=== PATIENT | female | born 1950 | race Caucasian/White ===

== ENCOUNTER 2021-06-13 10:32 | Emergency (ER) | payer OTHER ==
[~2021-06-13] VITALS: Ht 160 cm; Wt 72.6 kg
[2021-06-13 11:09] VITALS: BP 147/85
[2021-06-13] MEDS ORDERED: ONDANSETRON ODT 4 MG TAB PO ONE (11:30)
[2021-06-13] MEDS ORDERED: HYDROcodone-ACET 5/325MG TAB PO ONE (11:30)
== END 2021-06-13 12:48 | disposition home or self-care (01) ==
LOC: ER 10:32
DX: S42.202A Unspecified fracture of upper end of left humerus, initial encounter for closed fracture (principal); I10 Essential (primary) hypertension; E78.5 Hyperlipidemia, unspecified; W18.40XA Slipping, tripping and stumbling without falling, unspecified, initial encounter; Y93.89 Activity, other specified; Y92.89 Other specified places as the place of occurrence of the external cause; Y99.8 Other external cause status
CPT/HCPCS: 73030; 99282; Q0162

== ENCOUNTER 2022-06-29 09:52 | Emergency (ER) | payer OTHER ==
[~2022-06-29] VITALS: Ht 160 cm; Wt 76.0 kg
[2022-06-29 10:25] VITALS: BP 134/75
[2022-06-29] MEDS ORDERED: KETOROLAC TROMETH 30 MG/ML 1ML VIAL IM ONE (11:30)
[2022-06-29] MEDS ORDERED: MELO7.5T9 PO (11:34)
[2022-06-29] MEDS ORDERED: METH500T22 PO (11:34)
== END 2022-06-29 11:55 | disposition home or self-care (01) ==
LOC: ER 09:52
DX: S39.012A Strain of muscle, fascia and tendon of lower back, initial encounter (principal); M47.816 Spondylosis without myelopathy or radiculopathy, lumbar region; E78.5 Hyperlipidemia, unspecified; I10 Essential (primary) hypertension; X50.0XXA Overexertion from strenuous movement or load, initial encounter; Y93.89 Activity, other specified; Y92.89 Other specified places as the place of occurrence of the external cause; Y99.8 Other external cause status
CPT/HCPCS: 72100; 96372; 99283; J1885

== ENCOUNTER 2024-09-20 14:44 | Emergency (ER) | payer OTHER ==
[~2024-09-20] VITALS: Ht 160 cm; Wt 72.0 kg
[~2024-09-20 14:44] MED LIST: MELO7.5T9 PO; METH-1181 PO
[2024-09-20] MEDS ORDERED: GABA300T4 PO (17:14)
--- NOTE | 2024-09-20 17:17 | ED.PDOC ---
Asht[place]. trauma (HPI) HPI Comments 74 y.o female presents to the ED via EMS for a chief complaint of left posterior shoulder and upper back pain s/p mechanical fall 2 weeks ago. Patient reports landing on left side and since pain has been constant that worsens on palpation and movement. Patient was seen at two different urgent cares for pain, had X ray s done which showed now fractures but is here for reevaluation due to the persistent pain. Patient denied any head injuries or LOC when she fell. Chief Complaint: Back Pain Time Seen by MD: 17:08 Primary Care Provider: AUDREY Reviewed notes: Nurses Notes, [employer] Notes, Medications, Allergies Allergies: Coded Allergies: NO KNOWN ALLERGIES (Unverified , 06/13/21) Home Meds Active Scripts Gabapentin (Once-Daily) (Gabapentin) 300 Mg Tab, 300 MG PO Q6HPRN PRN for 10 Days, #40 TAB Prov:LEEROY LIMON MD 09/20/24 Methocarbamol (Methocarbamol) 500 Mg Tab, 500 MG PO QHSP PRN, #20 TAB Prov:CLARIBEL ABERNATHY 06/29/22 Meloxicam (Mobic) 7.5 Mg Tab, 7.5 MG PO BID, #30 TAB Prov:CLARIBEL ABERNATHY 06/29/22 Information Source: Patient Mode of Arrival: EMS Severity: Moderate Timing: Weeks (2) Duration: Since onset Location: Back, (L) Shoulder Location of laceration: None Mechanism: Fall Associated signs and symtoms: Other Past Medical History PAST MEDICAL HISTORY: Arthritis, Depression, High Lipids, HTN Surgical History: Denies all surgeries OCCUPATIONAL THERAPIST'S ASSISTANT History: Denies all OCCUPATIONAL THERAPIST'S ASSISTANT Hx Family History Family History: Reviewed,noncontributory to illness Social History Smoker: Non-Smoker Alcohol: Denies ETOH Use Drugs: Denies Drug Use Lives In: Home Constitutional: denies: chills, diaphoresis, fatigue, fever, malaise, sweats, weakness, others EENTM: denies: blurred vision, double vision, ear bleeding, ear discharge, ear drainage, ear pain, ear ringing, eye pain, eye redness, hearing loss, mouth pain, mouth swelling, nasal discharge, nose bleeding, nose congestion, nose pain, photophobia, tearing, throat pain, throat swelling, voice changes, others Respiratory: denies: cough, hemoptysis, orthopnea, SOB at rest, shortness of breath, SOB with excertion, stridor, wheezing, others Cardiovascular: denies: chest pain, dizzy spells, diaphoresis, Dyspnea on exertion, edema, irregular heart beat, left arm pain, lightheadedness, palpitations, PND, syncope, others Gastrointestinal: denies: abdomen distended, abdominal pain, blood streaked bowels, constipated, diarrhea, dysphagia, difficulty swallowing, hematemesis, melena, nausea, poor appetite, poor fluid intake, rectal bleeding, rectal pain, vomiting, others Genitourinary: denies: abnormal vagina bleeding, burning, dyspareunia, dysuria, flank pain, frequency, hematuria, incontinence, pain, , vagina discharge, urgency, others Neurological: denies: dizziness, fainting, headache, left sided numbness, left sided weakness, numbness, paresthesia, pre-existing deficit, right sided numbness, right sided weakness, seizure, speech problems, tingling, tremors, weakness, others Musculoskeletal: reports: back pain, others (left shoulder pain ); denies: gout, joint pain, joint swelling, muscle pain, muscle stiffness, neck pain Integumetry: denies: bruises, change in color, change in hair/nails, dryness, laceration, lesions, lumps, rash, wounds, others Allergic/Immunocompromised: denies: Difficulty Healing, Frequent Infections, Hives, Itching, others Hematologic/Lymphatic: denies: anemia, blood clots, easy bleeding, easy bruising, swollen glands, others Endocrine: denies: excessive hunger, excessive sweating, excessive thirst, excessive urination, flushing, intolerance to cold, intolerance to heat, unexplained weight gain, unexplained weight loss, others Psychiatric: denies: anxiety, bipolar disorder, depression, hopeless, panic disorder, schizophrenia, sleepless, suicidal, others All Other Systems: Reviewed and Negative Physical Exam General Appearance: Mild Distress HEENT: Normal ENT Inspection, Pharynx Normal, TMs Normal Neck: Full Range of Motion, Non-Tender, Normal, Normal Inspection Respiratory: Chest Non-Tender, Lungs Clear, No Accessory Muscle Use, No Respiratory Distress, Normal Breath Sounds Cardiovascular: No Edema, No JVD, No Murmur, No Gallop, Normal Peripheral Pulses, Regular Rate/Rhythm Breast Exam: Deferred Gastrointestinal: No Organomegaly, Non Tender, No Pulsatile Mass, Normal Bowel Sounds, Soft Genitalia: Deferred Pelvic: Deferred Rectal: Deferred Extremities: No calf tenderness, Normal capillary refill, Normal inspection, Normal range of motion, Non-tender, No pedal edema Musculoskeletal : Location: Left Extremity Location: Back (upper ), Shoulder (posterior ) Apperance: Limited ROM, Tenderness: Moderate Neurologic: Alert, wildlife officer II-XII nml as Tested, No Motor Deficits, Normal Affect, Normal Mood, No Sensory Deficits Cerebellar Function: Normal Reflexes: Normal Skin: Dry, Normal Color, Warm Lymphatic: No Adenopathy Was a procedure done? Was a procedure done?: No Differential Diagnosis Multiple Trauma: Fractures, Contusion, Hematoma X-Ray, Labs, Meds, VS Vital Signs Date Time Temp Pulse Resp B/P (MAP) Pulse Ox O2 Delivery O2 Flow Rate FiO2 09/20/24 19:27 89 18 09/20/24 18:05 88 20 128/66 09/20/24 17:35 92 18 114/79 09/20/24 17:28 98.2 92 18 114/79 (91) 97 98.2 09/20/24 17:28 92 18 98 Room Air* 0 21 09/20/24 14:50 97.5 72 20 150/88 (108) 99 97.5 Current Medications Medications (Trade) Dose Ordered Sig/Summer Route Start Time Stop Time Status Last Admin Acetaminophen/ Hydrocodone Bitart (Tyrone 10/325MG Tab) 1 tab ONCE ONCE PO 09/20/24 17:15 09/20/24 17:16 DC 09/20/24 19:20 Morphine Sulfate 4 mg ONCE ONCE IV 09/20/24 17:15 09/20/24 17:16 DC 09/20/24 17:35 Ondansetron HCl (Zofran) 4 mg ONCE ONCE IV 09/20/24 17:15 09/20/24 17:16 DC 09/20/24 17:34 Time of 1ST Reevaluation: 17:14 Reevaluation 1ST: Unchanged Patient Education/Counseling: Diagnosis, Treatment, Prognosis Family Education/Counseling: No Family Present Departure 1 Departure Time of Disposition: 18:30 Impression: Primary Impression: Low back strain Additional Impressions: Sprain of left shoulder Sprain of upper back Disposition: 01 HOME / SELF CARE / HOMELESS Condition: Stable e-Prescriptions Gabapentin (Once-Daily) (Gabapentin) 300 Mg Tab 300 MG PO Q6HPRN PRN for 10 Days, #40 TAB Prov: LEEROY LIMON MD 09/20/24 Discharged With: Self Critical Care Note Critical Care Time?: No Stability Stability form required: No I personally scribed for LEEROY LIMON MD ([email or web address]) on 09/20/24 at 17:17. Electronically submitted by Priscila Davalos ([facility]). LEEROY LIMON MD Sep 20, 2024 17:17
[2024-09-20 17:28] VITALS: PULSE 92; RESP 18; TEMP 98.2; O2SAT 98
[2024-09-20] MEDS: ONDANSETRON HCL 4 MG/2 ML VIAL IV ONE (17:34)
[2024-09-20] MEDS: MORPHINE SULFATE 4 MG/ML SYR/VIAL IV ONE (17:35)
[2024-09-20 18:05] VITALS: BP 128/66
[2024-09-20] MEDS: HYDROcodone-ACET 10/325MG TAB PO ONE (19:20)
[2024-09-20 19:27] VITALS: PULSE 89; RESP 18
== END 2024-09-20 19:40 | disposition home or self-care (01) ==
LOC: ER 14:44 → EDBD 14:44 → ER 19:37
DX: S43.402A Unspecified sprain of left shoulder joint, initial encounter (principal); S33.5XXA Sprain of ligaments of lumbar spine, initial encounter; S39.012A Strain of muscle, fascia and tendon of lower back, initial encounter; M19.90 Unspecified osteoarthritis, unspecified site; E78.5 Hyperlipidemia, unspecified; I10 Essential (primary) hypertension; Z79.899 Other long term (current) drug therapy; W19.XXXA Unspecified fall, initial encounter; Y93.89 Activity, other specified; Y92.89 Other specified places as the place of occurrence of the external cause; Y99.8 Other external cause status
CPT/HCPCS: 96374; 96375; 99283; J2270; J2405